=== PATIENT | female | born 2000 | race Caucasian/White ===

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

== ENCOUNTER 2022-12-05 06:55 | Emergency (ER) | payer MEDICAID ==
[~2022-12-05] VITALS: Ht 154.9 cm; Wt 75.7 kg
--- NOTE | 2022-12-05 07:08 | ED Lower Extremity ---
General Chief Complaint: Lower Extremity Stated Complaint: RIGHT ANKLE PAIN|SWOLLEN History of Present Illness Date Seen by Provider: December 05, 2022 Time Seen by Provider: 07:07 Initial Comments 22-year-old female who is 25 weeks , is here with complaints of a swelling on her right medial side of her ankle. Patient has had a chronic loculated swelling there since 2019 after she sprained her ankle. Patient states that before she could push it in and it would disappear and reappear upon movement and did not cause her much concern or pain. Today morning at 6:30 AM the swelling became larger and started causing pain when she moves her ankle. Denies injury, falls, trauma to ankle, fever and chills, shortness of breath, chest pain, generalized leg swelling or edema, knee pain, foot pain, redness, warm to touch. Allergies and Home Medications Allergies Coded Allergies: No Known Drug Allergies (Unverified , 01/18/20) Patient Home Medication List Home Medication List Reviewed: Yes Acetaminophen (Acetaminophen) 500 Mg Tablet, 1,000 MG PO Q6HR Prescribed by: ANGELI STEPHENS on 02/23/20620 Docusate Sodium (Dok) 100 Mg Capsule, 100 MG PO BID Prescribed by: ANGELI STEPHENS on 02/23/20620 Ibuprofen (Ibuprofen) 800 Mg Tablet, 800 MG PO Q8H Prescribed by: ANGELI STEPHENS on 02/23/20620 Oxycodone Hcl (Oxyir Tablet) 5 Mg Tablet, 5 MG PO Q6H Prescribed by: ANGELI STEPHENS on 02/23/20620 Review of Systems Constitutional: no symptoms reported EENTM: no symptoms reported Respiratory: no symptoms reported Cardiovascular: no symptoms reported Gastrointestinal: no symptoms reported Genitourinary: no symptoms reported : Yes Musculoskeletal: see HPI, joint swelling Skin: no symptoms reported Psychiatric/Neurological: No Symptoms Reported Past Dixhpxw-Sgvlmt-Wagjhn Hx Seasonal Allergies Seasonal Allergies: No Past Medical History Surgeries: No Respiratory: No Cardiac: No Neurological: No Reproductive Disorders: No Sexually Transmitted Disease: No HIV/AIDS: No Genitourinary: No Gastrointestinal: No Musculoskeletal: No Endocrine: No HEENT: No Cancer: No Psychosocial: No Integumentary: No Blood Disorders: No Adverse Reaction/Blood Tranf: No Family Medical History Aneurysm G8 BROTHER FHx: cancer G8 BROTHER Physical Exam Vital Signs Vital Signs - First Documented 12/05/22 07:01 Temp 37.1 Pulse 93 Resp 18 B/P (MAP) 127/84 (98) O2 Delivery Room Air Capillary Refill : Height, Weight, BMI Height: '" Weight: lbs. oz. kg; 35.25 BMI Method: General Appearance: WD/WN, mild distress HEENT: PERRL/EOMI Neck: full range of motion Cardiovascular: regular rate, rhythm, no edema Respiratory: lungs clear Knees: right knee non-tender, right knee normal inspection, right knee normal range of motion, right knee no evidence of injury Ankles: right ankle normal range of motion, right ankle no evidence of injury, right ankle swelling (4cm swelling on the medial side of the ankle, just inferomedial to the medial malleolus, tender to deep palpation, cystic in consistency, ROM unrestricted, NV bundle intact) Feet: right foot non-tender, right foot normal inspection, right foot normal range of motion, right foot no evidence of injury Progress/Results/Core Measures Results/Orders Vital Signs/I&O 12/05/22 07:01 Temp 37.1 Pulse 93 Resp 18 B/P (MAP) 127/84 (98) O2 Delivery Room Air Progress Progress Note : Progress Note 1. GANGLION CYST OF RIGHT ANKLE: - Bedside ultrasound read by me, swelling appears cystic in nature and is likely a ganglion cyst impinging on a nerve/ tendon causing the pain. - Follow up with Ortho Clinic: Dr Morris's office: Call to make appointment - Crutches given with instructions - ABBE bandage compression as needed, elevation of leg - Over the counter lidoderm patch or menthol patches recommended for pain - Informed pt on newer studies done on Tylenol use in showed 20% higher risk of autism and a 30% higher risk of ADHD for children who had prolonged exposure to acetaminophen during development. Short term use, of less than 8 days, or single use does not produce these results. Pt is informed and agrees to use at her own discretion. DIFFERENTIAL DIAGNOSIS DISCUSSION: This is likely a ganglion cyst due to its location, clinical findings, and history. It is not an infection/abscess since it is not red or hot to touch and patient has not had any fever. He does not pedal edema since there is no generalized swelling of the feet or ankles or leg. It is unlikely to be a clot since there is no redness, edema, Homans' sign negative, shortness of breath or chest pain, and does not appear to be within a vessel but along the tendon. Unlikely to be a sebaceous cyst or lipoma since there is no punctum and skin over the swelling is not pinchable. Departure Impression Primary Impression: Ganglion cyst Disposition: 01 HOME, SELF-CARE Condition: Stable Departure-Patient Inst. Referrals: RICHARD SCOTT MD (PCP/Family) Primary Care Physician HIRA MORRIS MD Add. Discharge Instructions: - Follow up with Ortho Clinic: Dr Morris's office: Call to make appointment - Crutches given with instructions - ABBE bandage compression as needed, elevation of leg - Over the counter lidoderm patch or menthol patches recommended for pain - Informed pt on newer studies done on Tylenol use in showed 20% higher risk of autism and a 30% higher risk of ADHD for children who had prolonged exposure to acetaminophen during development. Short term use, of less than 8 days, or single use does not produce these results. Pt is informed and agrees to use at her own discretion as needed. All discharge instructions reviewed with patient and/or family. Voiced un derstanding. Work/School Note: Work Release Form Date Seen in the Emergency Department: December 05, 2022 Return to Work: December 07, 2022 Other Restrictions Listed Below: Will need to elevate leg while sitting JONATHON FELIPE MD December 05, 2022 07:08
[2022-12-05 07:45] VITALS: BP 125/73
== END 2022-12-05 07:45 | disposition home or self-care (01) ==
LOC: EDUNIT# 06:55 → ER FS 06:59
DX: O99.891 Other specified diseases and conditions complicating pregnancy (principal); M67.471 Ganglion, right ankle and foot; Z3A.25 25 weeks gestation of pregnancy; Z28.310 Unvaccinated for COVID-19
CPT/HCPCS: 99281

== ENCOUNTER → 2022-12-05 | Outpatient (CLI) | payer MEDICAID ==
[~2022-12-05] MED LIST changes: -DCS100C PO; +DOCU-239 PO
== END ==
LOC: ORTHO 09:46
PROVIDERS: ATTEND Orthopaedic Surgery
DX: S93.402A Sprain of unspecified ligament of left ankle, initial encounter (principal); M67.472 Ganglion, left ankle and foot
CPT/HCPCS: 99203